=== PATIENT | female | born 1965 | race African-American/Black ===

== ENCOUNTER → 2016-08-05 | Outpatient (CLI) | payer BC ==
[2015-06-20 19:30] VITALS: BP 144/89
--- NOTE | 2016-08-05 11:13 | KCIC ---
PQRS STATEMENT One or more of the following individualized dose reduction techniques were utilized for this study: 1.Automated exposure control 2.Adjustment of the mA and/or kV according to patient size 3.Use of iterative reconstruction technique CT maxillofacial Indication: Reason For Study Reason: CHRONIC SINUSITIS / Spl. Instructions: / History: Congestion, headaches for 6 months Technique: multiple contiguous axial images were obtained through the facial bones. Coronal and sagittal reformations were created. Findings:Soft tissues are within normal limits. No facial fractures are identified. The paranasal sinuses and mastoid air cells are clear. Ostiomeatal units are patent, as are the frontal ethmoid recesses. Temporomandibular joints are intact. The globes and orbits are within normal limits. Parapharyngeal soft tissues are within normal limits. Impression: Negative CT maxillofacial study. Electronically signed by: Gary Jin (Aug 05, 2016 11:11:53)
== END | disposition home or self-care (01) ==
LOC: KCIC CT 10:36
PROVIDERS: ATTEND Otolaryngology
DX: J32.9 Chronic sinusitis, unspecified (principal)
CPT/HCPCS: 70486

== ENCOUNTER 2016-10-01 19:07 | Emergency (ER) | payer BC ==
[~2016-10-01] VITALS: Ht 154.9 cm; Wt 86.2 kg
[2016-10-01 20:17] LABS: BASO % 1 % (0-3); EOS % 0 % (0-3); HEMATOCRIT 40.8 % (36.0-47.0); HEMOGLOBIN 13.9 g/dL (12.0-15.5); LYMPH # 0.8 x10^3/uL (1.0-4.8); LYMPH % 10 % (24-48); MEAN CORPUSCULAR HEMOGLOBIN 30 pg (25-35); MEAN CORPUSCULAR HGB CONC 34 g/dL (31-37); MEAN CORPUSCULAR VOLUME 88 fL (79-100); MONO % 5 % (0-9); NEUT % 85 % (31-73); PLATELET COUNT 279 x10^3/uL (140-400); RED BLOOD COUNT 4.61 x10^6/uL (3.50-5.40); RED CELL DISTRIBUTION WIDTH 12.9 % (11.5-14.5)
[2016-10-01] MEDS ORDERED: ONDANSETRON PF 4 MG/2 ML VIAL. IV ONE (20:30)
[2016-10-01] MEDS ORDERED: IV NORMAL SALINE 1000ML BAG 1,000 ML IV SCH (20:30)
[2016-10-01 20:33] LABS: CALCIUM 8.4 mg/dL (8.5-10.1); CREATININE 0.8 mg/dL (0.6-1.0); GFR 92.2; POTASSIUM 3.8 mmol/L (3.5-5.1)
[2016-10-01 20:39] LABS: ALBUMIN 3.5 g/dL (3.4-5.0); ALBUMIN/GLOBULIN RATIO 0.9 (1.0-1.7); TOTAL PROTEIN 7.3 g/dL (6.4-8.2)
[2016-10-01 20:49] LABS: BILIRUBIN,URINE NEGATIVE (NEG); GLUCOSE,URINE NEGATIVE (NEG); NITRITE,URINE NEGATIVE (NEG); PH,URINE 6.5; PROTEIN,URINE NEGATIVE (NEG-TRACE)
[2016-10-01 20:51] LABS: OBC FLU VALID
[2016-10-01 21:00] LABS: BACTERIA,URINE FEW /HPF (0-FEW); RBC,URINE 0 /HPF (0-2); SQUAMOUS EPITHELIAL CELL,UR MANY /LPF; WBC,URINE OCC /HPF (0-4)
[2016-10-01 22:00] VITALS: BP 177/85
[2016-10-01] MEDS ORDERED: DICY10CA53 PO (22:04)
[2016-10-01] MEDS ORDERED: ONDA4TAB7 PO (22:04)
[2016-10-01] MEDS ORDERED: ACETAMINOPHEN 500 MG TABLET PO ONE (22:15)
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
== END 2016-10-01 22:18 | disposition home or self-care (01) ==
LOC: ER 19:07
DX: R11.2 Nausea with vomiting, unspecified (principal); R50.9 Fever, unspecified; R51 Headache; R42 Dizziness and giddiness; R19.7 Diarrhea, unspecified; M79.1 Myalgia; R10.9 Unspecified abdominal pain; Z90.710 Acquired absence of both cervix and uterus; Z91.040 Latex allergy status; Z91.013 Allergy to seafood
CPT/HCPCS: 36415; 80053; 81001; 83690; 85027; 87086; 87804; 96361; 96374; 99284; J2405; J7030

== ENCOUNTER 2017-06-07 08:23 | Emergency (ER) | payer BC ==
[~2017-06-07] VITALS: Ht 154.9 cm; Wt 81.6 kg
[~2017-06-07 08:23] MED LIST: DICY10CA53 PO; ONDA4TAB7 PO
[2017-06-07] MEDS ORDERED: diphenhydrAMINE 50 MG/ML VIAL IVP ONE (09:15)
[2017-06-07] MEDS ORDERED: PROCHLORPERAZINE 10 MG/2 ML VIAL. IV ONE (09:15)
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
[2017-06-07] MEDS ORDERED: IV NORMAL SALINE 1000ML BAG 1,000 ML IV ONE (09:30)
--- NOTE | 2017-06-07 09:50 | RAD ---
CT of the head without contrast, 06/07/2017: History: Headache, old concussion The ventricles are within normal limits in size. There is no shift of the midline structures. There is no evidence of acute intracranial hemorrhage or mass effect. IMPRESSION: No acute intracranial abnormality is detected. CT of the paranasal sinuses without contrast, 06/07/2017: Noncontrast scans were obtained with multiplanar reconstructions produced. No fluid or significant mucosal thickening is evident in the paranasal sinuses. The orbital contents are unremarkable. No bony abnormality is detected. IMPRESSION: No significant paranasal sinus abnormality is detected. PQRS Compliance Statement: One or more of the following individualized dose reduction techniques were utilized for this examination: 1. Automated exposure control 2. Adjustment of the mA and/or kV according to patient size 3. Use of iterative reconstruction technique
[2017-06-07 10:00] LABS: BASO # 0.1 x10^3/uL (0.0-0.2); BASO % 1 % (0-3); EOS % 2 % (0-3); HEMATOCRIT 40.4 % (36.0-47.0); HEMOGLOBIN 13.7 g/dL (12.0-15.5); LYMPH # 1.7 x10^3/uL (1.0-4.8); LYMPH % 34 % (24-48); MEAN CORPUSCULAR HEMOGLOBIN 31 pg (25-35); MEAN CORPUSCULAR HGB CONC 34 g/dL (31-37); MEAN CORPUSCULAR VOLUME 90 fL (79-100); MONO % 10 % (0-9); NEUT % 53 % (31-73); PLATELET COUNT 334 x10^3/uL (140-400); RED BLOOD COUNT 4.48 x10^6/uL (3.50-5.40); RED CELL DISTRIBUTION WIDTH 12.9 % (11.5-14.5); WHITE BLOOD COUNT 4.9 x10^3/uL (4.0-11.0)
[2017-06-07 10:13] LABS: CALCIUM 8.6 mg/dL (8.5-10.1); CREATININE 0.8 mg/dL (0.6-1.0); GFR 92.2; POTASSIUM 3.3 mmol/L (3.5-5.1)
[2017-06-07 10:19] LABS: ALBUMIN 3.3 g/dL (3.4-5.0); TOTAL PROTEIN 6.7 g/dL (6.4-8.2)
[2017-06-07 11:14] LABS: BILIRUBIN,URINE NEGATIVE (NEG); GLUCOSE,URINE NEGATIVE (NEG); NITRITE,URINE NEGATIVE (NEG); PROTEIN,URINE NEGATIVE (NEG-TRACE)
[2017-06-07 11:25] LABS: BACTERIA,URINE 0 /HPF (0-FEW); RBC,URINE 0 /HPF (0-2); SQUAMOUS EPITHELIAL CELL,UR FEW /LPF; WBC,URINE 0 /HPF (0-4)
[2017-06-07] MEDS ORDERED: POTASSIUM CHLORIDE 20 MEQ TABLET.ER. PO ONE (11:45)
[2017-06-07] MEDS ORDERED: MAGNESIUM SULFATE 2GM 50 ML IV ONE (12:30)
[2017-06-07] MEDS ORDERED: KETOROLAC 30 MG/ML INJ. IV ONE (12:30)
[2017-06-07] MEDS ORDERED: NAPR-683 PO (14:43)
[2017-06-07 15:04] VITALS: BP 153/79
== END 2017-06-07 15:09 | disposition home or self-care (01) ==
LOC: ER 08:23
DX: F07.81 Postconcussional syndrome (principal); G43.909 Migraine, unspecified, not intractable, without status migrainosus; Z91.013 Allergy to seafood; Z91.040 Latex allergy status
CPT/HCPCS: 36415; 70450; 70486; 80053; 81001; 85025; 96361; 96365; 96375; 99285; J0780; J1200; J1885; J7030; J7060

== ENCOUNTER 2017-07-30 08:19 | Emergency (ER) | payer BC ==
[2017-07-30] MEDS: IPRATRPIUM/ALBUTEROL 0.5/2.5MG 3 ML NEBU. NEB (08:49)
[2017-07-30] MEDS: ALBUTEROL SULFATE 2.5 MG/3 ML NEBU. NEB (09:41)
[2017-07-30 09:44] LABS: INFLUENZA A PATIENT NEGATIVE (NEGATIVE); INFLUENZA B PATIENT NEGATIVE (NEGATIVE); OBC FLU VALID
== END 2017-07-30 11:02 | disposition home or self-care (01) ==
LOC: ER 08:19
DX: J40 Bronchitis, not specified as acute or chronic (principal); J06.9 Acute upper respiratory infection, unspecified; Z91.013 Allergy to seafood; Z91.040 Latex allergy status; Z90.710 Acquired absence of both cervix and uterus; Z98.84 Bariatric surgery status
CPT/HCPCS: 87804; 87804-59; 94640; 99284; J7613; J7620